=== PATIENT | male | born 1970 | race Caucasian/White ===

== ENCOUNTER 2020-01-27 19:30 | Observation (INO) | payer OTHER, SELFPAY ==
--- NOTE | ~2020-01-27 | MR_ITS ---
EXAMINATION: MR brain/brain stem wo/w con DATE: 01/28/2020 17:07 INDICATION: Headache. Paresthesias. TECHNIQUE: Magnetic resonance imaging (MRI) of the brain and brainstem was performed without and with 15 mL MultiHance intravenous contrast. Sequences included sagittal and axial T1-weighted FSE, axial diffusion-weighted FS EPI, axial T2*-weighted GRE, axial T2-weighted FLAIR Propeller, and axial T2-we ighted Propeller. Postcontrast sequences included axial and coronal T1-weighted FSE. Apparent diffusi on coefficient (ADC) maps were created. COMPARISON: None. FINDINGS: There is no intracranial hemorrhage, acute infarction, or abnormal intracranial mass lesion . There are scattered areas of nonspecific increased T2-weighted signal intensity in the cerebral whi te matter, which is within normal limits for the patient's age. The ventricles are normal in size. Th ere is mucosal thickening in the paranasal sinuses. The orbits are normal. The mastoid air cells are normal. IMPRESSION: 1. Normal brain. Reviewed, dictated and finalized at location A. IMPRESSION: 1. Normal brain.
--- NOTE | ~2020-01-27 | MR_ITS ---
EXAMINATION: MR cervical spine wo/w con DATE: 01/28/2020 17:07 INDICATION: Left arm paresthesias. Headache. TECHNIQUE: Magnetic resonance imaging (MRI) of the cervical spine was performed without and with 15 m L MultiHance intravenous contrast. Sequences included sagittal and axial T2-weighted FSE, sagittal ST IR FSE, and sagittal and axial T1-weighted FSE. Postcontrast sequences included sagittal and axial T1 -weighted FS FSE. COMPARISON: None FINDINGS: There is 4 degrees levocurvature of cervical spine. Vertebral body heights are normal. Ther e is severely decreased disc height from C3-C4 through C6-C7. The spinal cord signal intensity is nor mal. The following disc levels are specifically discussed: C2-C3: There is a central protrusion. There is no uncovertebral joint osteoarthritis. There is modera te bilateral facet joint osteoarthritis. There is no neural foraminal stenosis. There is no central c anal stenosis. C3-C4: The disc is bulging. There is severe bilateral uncovertebral joint osteoarthritis. There is no facet joint osteoarthritis. There is moderate right and mild left neural foraminal stenosis. There i s mild central canal stenosis with ventral indentation of the spinal cord. C4-C5: The disc is bulging. There is severe bilateral uncovertebral joint osteoarthritis. There is no facet joint osteoarthritis. There is moderate right and mild left neural foraminal stenosis. There i s mild central canal stenosis with ventral indentation of the spinal cord. C5-C6: The disc is bulging. There is severe bilateral uncovertebral joint osteoarthritis. There is no facet joint osteoarthritis. There is moderate right and mild left neural foraminal stenosis. There i s mild central canal stenosis. C6-C7: The disc is bulging. There is severe right and moderate left uncovertebral joint osteoarthriti s. There is no facet joint osteoarthritis. There is moderate right and mild left neural foraminal georges nosis. There is mild central canal stenosis. C7-T1: The disc does not extend beyond the endplate margin. There is no uncovertebral joint osteoarth ritis. There is mild bilateral facet joint osteoarthritis. There is mild right neural foraminal steno sis. There is no central canal stenosis. IMPRESSION: 1. Severe cervical spondylosis. Reviewed, dictated and finalized at location A.
--- NOTE | ~2020-01-27 | US_ITS ---
EXAMINATION: US carotid duplex BI DATE: 01/29/2020 16:56 INDICATION: Left hemiparesis. TECHNIQUE: Grayscale, color Doppler, and pulsed Doppler images of the cervical carotid arteries were obtained. The degree of vessel stenosis is placed in one of the following categories: normal, <50%, 5 0-69%, >=70% but less than near-occlusion, near-occlusion, or total occlusion. Note that percent sten osis relative to normal distal artery lumen diameter is indirectly measured from velocity measurement s as described by Pako, et al. Radiology 2003; 229:[id number]. COMPARISON: None. FINDINGS: RIGHT: The right common carotid artery (CCA) peak systolic velocity (PSV) is 107 cm/s. The right internal ca rotid artery (ICA) PSV is 98 cm/s. The right ICA end-diastolic velocity (EDV) is 29 cm/s. The right I CA/CCA PSV ratio is 0.9. Grayscale and color Doppler images yield an estimate of <50% diameter reduct ion from plaque in the ICA. There is antegrade flow in the right vertebral artery. LEFT: The left CCA PSV is 116 cm/s. The left ICA PSV is 100 cm/s. The left ICA EDV is 34 cm/s. The left ICA /CCA PSV ratio is 0.9. Grayscale and color Doppler images yield an estimate of <50% diameter reductio n from plaque in the ICA. There is antegrade flow in the left vertebral artery. IMPRESSION: 1. <50% stenosis in the right internal carotid artery. 2. <50% stenosis in the left internal carotid artery. Reviewed, dictated and finalized at location A.
--- NOTE | 2020-01-27 20:12 | ADMGEN ---
This patient, Karri Orourke, [facility] [place] [facility] Room 251-01. Patient/family oriented to hospital policies and general routines including ID bracelet, bed and alarms, visiting hours, pain management, procedures, bathroom and other care routines, personal items, smoking policy, room service/diet, and visiting hours. Valuables list has been completed. Information on how to activate the Rapid Response Team has been discussed. Patient/Family are encouraged to report perceived risks to care and to ask questions if they do not understand what they are told or what they should do. MD notified of arrival.
--- NOTE | 2020-01-27 21:00 | PM.IMHP ---
H&P: HPI History of Present Illness Chief complaint: Headache, left arm paresthesias. Narrative: Karri Orourke is a 49-year-old male with hypertension hyperlipidemia who presented to the emergency department at [facility] early this morning for evaluation of a headache and left arm paresthesias. He awoke with a headache about his right eye yesterday and it has been constant since that time. He has a difficult time describing the pain and it does not seem to radiate any further than in a box like fashion around his right eye. He endorses photophobia as well. Toradol received at the outside hospital provided no relief. Additionally he reports paresthesias of his left upper extremity, from the left elbow to the left wrist and that has been intermittent for the past couple of days. He denies vertigo, focal weakness, jaw claudication, vision loss, dysarthria, dysphagia, chest pain, palpitations, neck pain, injury, nausea, and vomiting. Review of Systems Review of Systems: Narrative: Twelve systems were reviewed with pertinent positives and negatives as per HPI. No fever, chills, or sweats. He denies sinus congestion, rhinorrhea, otalgia, and odynophagia. With further questioning, he has seasonal sinus issues but has no complaints of such at this time. He reports anterior epistaxis x2 over the past 24 hours. Compliant with his antihypertensives. He does not check his blood pressure at home. He takes gabapentin for low back pain and what sounds like restless legs at night. He has pain in his right shoulder on occasion but has no pain or injury to the left shoulder. He has no history of sleep apnea but states that he snores. He does wake up at nighttime, and on occasion will wake up short of breath. He is not always well rested when he wakes and is frequently tired. has not witnessed any apneic episodes. Except as documented, all other systems were reviewed and are negative. [facility] Past Medical History Medical History (Updated 01/27/20 @ 21:50 by Mary Garcia PA-C) Chronic back pain Essential hypertension GERD (gastroesophageal reflux disease) Hyperlipidemia Psoriasis Surgical History Surgical History (Updated 01/27/20 @ 21:44 by Mary Garcia PA-C) History of bilateral inguinal herniorrhaphies Family History Family History (Updated 01/27/20 @ 21:44 by Mary Garcia PA-C) Mother Diabetes mellitus Hypertension Father Diabetes mellitus Hypertension Social History Social History (Updated 01/27/20 @ 21:45 by Mary Garcia PA-C) Social History: The patient lives in [place], [place] with his . He has no biological children. He works at an [employer] store. He smoked 1 pack of cigarettes per day for 20 years and quit about 4 years ago. He denies alcohol and illicit substance use. He designates his , Bettie, as his surrogate decision maker and he wishes to be a full code. Exam Narrative: Exam Narrative: General: Well-developed male sitting up in bed watching television in no distress. HEENT: Normocephalic, atraumatic. PERRL, EOMI. Sclerae anicteric. Complains of photophobia when I shine a light into his right eye only. Right temporal artery is not painful to palpation. Oral mucosa moist. Some missing teeth. Oropharynx clear. Neck: Supple. No obvious bruits. Respiratory: Lungs are clear to auscultation bilaterally. Cardiovascular: Regular rate and rhythm with S1-S2. No murmur, rub, or gallop. Gastrointestinal: Abdomen is soft, nontender, and nondistended with positive bowel sounds. Skin: Warm and dry. Several tattoos. Plaque psoriasis on elbows, knees, and shins. Extremities: No cyanosis, clubbing, or edema. Radial and pedal pulses intact. Spine: No midline cervical tenderness. Neurological: Alert and oriented. Cranial nerves 2-12 are grossly intact. Speech is clear. No facial asymmetry. Hand vfx artist and foot pushes are equal. No
[2020-01-27 22:00] VITALS: BP 140/75; PULSE 75; RESP 20; TEMP 37.1; O2SAT 97
[2020-01-27 22:10] VITALS: BMI 25.9
[2020-01-28] VITALS (8 sets, daily range): BP systolic 121–132; BP diastolic 71–84; PULSE 69–87; RESP 16–18; TEMP 36.1–36.8; O2SAT 93–96
[2020-01-28 06:04] LABS: CRP < 0.5 mg/dL (<1.0); Cholesterol 210 mg/dL (0-200); HDL Direct 32 mg/dL; Triglycerides 322 mg/dL (<150)
[2020-01-28 06:11] LABS: LDL Cholesterol Direct 115 mg/dL
[2020-01-28 07:07] LABS: Folic Acid 9.4 ng/mL (2.76->20)
[2020-01-28] MEDS: ASPIRIN 81 MG ENTERIC TABLET PO (08:00)
[2020-01-28] MEDS: PANTOPRAZOLE 40 MG TABLET PO (09:50)
--- NOTE | 2020-01-28 11:40 | PM.IMPN ---
Progress Note: A&P Assessment and Plan (1) Headache: Code(s): R51 - Headache Status: Acute Assessment and Plan: Differential diagnosis includes atypical migraine, sinusitis (history of but no current symptoms of such), reversible cerebral basal constriction syndrome, arteritis (no jaw claudication, tenderness, or visual changes), versus other. Continue analgesics as needed. CRP was normal. TSH is pending. Apnea link was ordered given AM headaches and daytime somnolence and is pending. Neurology is on board and further input is appreciated. (2) Paresthesia of left arm: Code(s): R20.2 - Paresthesia of skin Status: Acute Assessment and Plan: Differential diagnosis includes TIA, CVA, MS, peripheral neuropathy, versus other. MRI of the brain/brainstem and cervical spine have been ordered for further evaluation and are currently pending. Neurology is on board. Neurology input is appreciated. (3) Essential hypertension: Code(s): I10 - Essential (primary) hypertension Status: Acute Assessment and Plan: Blood pressure were reviewed and are well-controlled. Plan to continue amlodipine. Continue to monitor. (4) Hyperlipidemia: Code(s): E78.5 - Hyperlipidemia, unspecified Status: Acute Assessment and Plan: Continue pravastatin; LFTs within normal limits. LDL was 115 and HDL 32. He needs to implement low cholesterol diet and exercise. (5) GERD (gastroesophageal reflux disease): Code(s): K21.9 - Gastro-esophageal reflux disease without esophagitis Status: Acute Assessment and Plan: No acute issues. Continue pantoprazole in place of lansoprazole. (6) DVT prophylaxis: Code(s): Z29.9 - Encounter for prophylactic measures, unspecified Status: Acute Assessment and Plan: Continue SCDs. Subjective Date/time seen: 01/28/20 11:40 Interval history: Mr. Orourke is a 49 y.o. male who is seen and examined in follow-up for a headache and left upper extremity numbness. He reports that he is still having 7/10 pain. His pain is present behind the right eye. It is constant in nature since Thursday 01/25. He reports mild LUE numbness but is no longer having weakness. He reports no further nosebleeds. He denies fever and chills. He denies nausea and vomiting. He has a hx of migraines since grade school and notes that he typically has vomiting with his other migraines in the past. He reports associated photophobia. He has no other complaints at this time. He reports intermittent anxiety. Review of Systems Review of Systems: All systems reviewed & are unremarkable except as noted in HPI and below Exam Narrative: Exam Narrative: General: Pleasant, well-developed, and well-nourished 49 y.o. male lying in the semi-flanagan's position in bed in no acute distress. HEENT: Normocephalic and atraumatic. Ice pack present on forehead. Conjunctivae and lids normal without injection. No lacrimation. PERRL. Photophobia present with light shined on right eye. EOMI. Bilateral TMs without injection, bulging, or fluid appreciated. Mucous membranes moist. Posterior pharynx without erythema or exudate. Neck: Supple. No lymphadenopathy or masses. Cardiac: Regular rate and rhythm. S1 and S2 normal. No murmur appreciated. Lungs: Effort normal. Lungs clear to auscultation bilaterally. Abdomen: Normoactive bowel sounds. Abdomen soft, non-tender, and non-distended. Musculoskeletal: No joint erythema, swelling, or tenderness. ROM within normal limits. Extremities: No lower extremity edema. Palpable DP and PT bilaterally. Neurological: Alert and oriented x3. CN II-XII grossly intact. Upper and lower extremity strength intact and symmetric 5/5. No pronator drift. Speech is clear. Skin: Warm and dry. Papular rashes on the knees and elbows bilaterally with silver scales consistent with psoriasis. Psychiatric: Judgment and insight intact. Mood and a
--- NOTE | 2020-01-28 17:12 | CONS_ITS ---
DATE OF CONSULTATION: HISTORY OF PRESENT ILLNESS: This 49 years old has been admitted to [facility] through the emergency room for the complaint of left upper extremity paresthesias. The patient initially presented to the emergency room of hospital for evaluation of headache and left upper extremity paresthesia. Reportedly, he woke up with a headache, constant in nature with no radiation, but with photophobia and also with a history of no relief with the pain medication that is Toradol. Additionally, he complained of left upper extremity paresthesia, which he has been experiencing intermittently over the last couple of days. He gave no history of any other associated symptomatology. PAST MEDICAL HISTORY: He does carry the ongoing diagnoses of: 1. Hypertension. 2. Hyperlipidemia. 3. GERD. 4. Psoriasis. 5. Chronic back pain. PAST SURGICAL HISTORY: In the past, he has undergone bilateral inguinal herniorrhaphies. SOCIAL HISTORY: He works at the [employer], and he smoked 1 pack of cigarettes per day for 20 years, quit about 40 years ago. Does not drink alcohol and does not take any substance. PHYSICAL EXAMINATION: GENERAL: Today, he was awake, alert, cooperative, in no obvious acute distress. HEENT: Head was normocephalic with no cranial bruit. Ears, nose, throat examination was normal. NECK: Supple with no cervical bruit. No thyromegaly. No lymphadenopathy. HEART: Regular with no murmur. LUNGS: Clear to auscultation. ABDOMEN: Soft with no organomegaly. NEUROLOGICAL: He was awake, alert, oriented x3. His speech is not dysphasic, not dysarthric, not dysphonic. Pupils round, regular. Pastor of vision full. Extraocular movements full. Face symmetrical. Tongue midline. Motor examination revealed him to have normal strength and tone with no drift against gravity. Reflexes symmetrical. Plantars downgoing. No evidence of gross sensory or cerebellar deficit. LABORATORY DATA: Investigation up until now included a routine CBC which was normal. Normal BMP, normal hepatic enzymes. IMAGING: Negative CT scan of the head. IMPRESSION AND PLAN: The patient was admitted to the hospital with the possibility of atypical complicated migraine in addition to ongoing history of underlying risk factors of hypertension, hyperlipidemia. He is waiting for the MRI. In the meantime, the treatment will be continued as such. Further recommendations will be made after the MRI report. SAUMYA SAWYER M.D. MUSIC CATALOGUER MUSIC CATALOGUER D I MT: Rufino MARQUEZ
[2020-01-28] MEDS: PRAVASTATIN SODIUM 20 MG TABLET 40 MG PO (21:18)
[2020-01-28] MEDS: amLODIPine BESYLATE 5 MG TABLET PO (21:18)
[2020-01-28] MEDS: GABAPENTIN 300 MG CAPSULE 600 MG PO (21:19)
[2020-01-29] VITALS (8 sets, daily range): BP systolic 118–127; BP diastolic 67–74; PULSE 70–92; RESP 16; TEMP 36–36.1; O2SAT 90–94
[2020-01-29] MEDS: LEVOTHYROXINE SODIUM 50 MCG TABLET PO (06:09)
[2020-01-29] MEDS: IBUPROFEN 600 MG TABLET PO (08:06)
[2020-01-29] MEDS: PANTOPRAZOLE 40 MG TABLET PO (08:06)
[2020-01-29] MEDS: ASPIRIN 81 MG ENTERIC TABLET PO (08:06)
--- NOTE | 2020-01-29 12:07 | WPDNEUROPN ---
Progress Note: A&P Assessment and Plan (1) DVT prophylaxis: Code(s): Z29.9 - Encounter for prophylactic measures, unspecified Status: Acute (2) Paresthesia of left arm: Code(s): R20.2 - Paresthesia of skin Status: Acute (3) Headache: Code(s): R51 - Headache Status: Acute (4) GERD (gastroesophageal reflux disease): Code(s): K21.9 - Gastro-esophageal reflux disease without esophagitis Status: Acute (5) Hyperlipidemia: Code(s): E78.5 - Hyperlipidemia, unspecified Status: Acute (6) Essential hypertension: Code(s): I10 - Essential (primary) hypertension Status: Acute (7) Cervical spondylolysis: Code(s): M43.02 - Spondylolysis, cervical region Status: Acute Additional Plan will need emg as outpatient and follow up for kavon ,continue one aspirin 81 mg daily Review of Systems Review of Systems: All systems reviewed & are unremarkable except as noted in HPI and below Exam Const: General: cooperative, healthy appearing, comfortable, no acute distress, alert and awake Nutritional Appearance: average body habitus Orientation/consciousness: patient oriented x3 Limitations: no limitations HENMT: Head: normal to inspection Ears: hearing grossly normal bilaterally General nose exam: Normal external nose present and No nasal discharge present Eyes: General: appearance normal, both eyes and all related structures Visual Morales: normal visual morales by confrontation Alignment and Position: alignment normal Periorbital: periorbital findings normal Eyelids: eyelids normal Conjunctivae: conjunctivae normal Sclera: sclerae normal Cornea: corneas normal Pupils: Equal, round and reactive pupils present EOM: EOMs intact bilaterally Direct Ophthalmoscopy: normal light reflex Neck: Neck: full ROM and no lymphadenopathy Resp: Effort & Inspection: normal respiratory effort Auscultation: clear to auscultation bilaterally Cardio: Rate: regular rate Rhythm: regular rhythm GI: Auscultation: normal bowel sounds Skin: General skin exam: no rashes or lesions noted Neuro: General: patient oriented x3, moves all extremities and CN's II-XI intact bilaterally Cranial nerves: Yes CN's II-XII intact bilaterally Cognition (Neuro): normal cognition Speech: normal speech Motor exam (neuro): 5/5 motor strength present throughout Sensory Exam: normal sensation Deep tendon reflexes (DTR's): Right triceps reflex intensity grade: 1+, Left triceps reflex intensity grade: 1+, Rt Biceps (C5, C6): 1+, Left biceps reflex intensity grade: 1+, Right brachioradialis reflex intensity grade: 1+, Left brachioradialis reflex intensity grade: 1+, Right patellar reflex intensity grade: 1+, Left patellar reflex intensity grade: 1+, Right ankle reflex intensity grade: 1+ and Left ankle reflex intensity grade: 1+ Plantar Reflex Responses: downgoing: bilateral Extrem: General: normal to inspection Psych: Appearance: grossly normal Objective Data Vital Signs Vital Signs: Vital Signs - 24 hr 01/28/20 14:00 01/28/20 20:00 01/28/20 21:55 Temperature 36.8 C 36.1 C L Pulse Rate 86 83 73 Respiratory Rate 17 16 Blood Pressure 132/84 126/71 Pulse Oximetry 96 96 01/29/20 00:11 01/29/20 04:00 01/29/20 05:23 Temperature 36.0 C L Pulse Rate 88 70 75 Respiratory Rate 16 Blood Pressure 118/67 Pulse Oximetry 90 01/29/20 08:00 Temperature Pulse Rate 75 Respiratory Rate 16 Blood Pressure Pulse Oximetry 90 Intake/Output Intake/Output: Intake & Output 01/26/20 01/27/20 01/28/20 01/29/20 23:59 23:59 23:59 23:59 Intake Total 1810 540 Balance 1810 540 Meds/Results Medications: Active Medications Generic Name Dose Route Start Last Admin Trade Name Freq PRN Reason Stop Dose Admin Acetaminophen 650 mg 01/27/20 21:57 Tylenol Tablet PO Q6H PRN Mild Pain (1-3) or Fever Hydrocodone Bitart/Acetaminophen 1 tab 01/27/20 21
[2020-01-29 12:49] LABS: Free T4 Free Thyroxine Reflex 1.05 ng/dL (0.78-2.19)
[2020-01-29 14:58] LABS: Total Triiodothyronine (T3) 2.33 NG/ML (0.97-1.69)
--- NOTE | 2020-01-29 16:06 | PM.DS ---
DS: Admitting Diagnosis Admitting Diagnosis Admitting Diagnosis: Headache DS: Discharge Diagnosis Discharge Diagnosis (1) Headache: Code(s): R51 - Headache Status: Acute (2) Paresthesia of left arm: Code(s): R20.2 - Paresthesia of skin Status: Acute (3) Essential hypertension: Code(s): I10 - Essential (primary) hypertension Status: Acute (4) Hyperlipidemia: Code(s): E78.5 - Hyperlipidemia, unspecified Status: Acute (5) GERD (gastroesophageal reflux disease): Code(s): K21.9 - Gastro-esophageal reflux disease without esophagitis Status: Acute (6) Subclinical hypothyroidism: Code(s): E03.9 - Hypothyroidism, unspecified Status: Acute Assessment and Plan: TSH was elevated at 17.8, free T4 1.05, and total T3 elevated at 2.33. He will need to follow-up with his PCP for further evaluation/monitoring. (7) Cervical spondylolysis: Code(s): M43.02 - Spondylolysis, cervical region Status: Acute DS: Summary Hospital Course Reason for hospitalization: Headache with left arm paresthesias Hospital Course: Mr. Orourke is a 49 y.o. male with PMH significant for hypertension, hyperlipidemia, and migraines who presented to the emergency department at [facility] 01/27/20 for the evaluation of headache and left arm paresthesias. He reports awakening with a headache behind his right eye Sunday morning. The headache did not radiate. He also noted photophobia. In addition, he reported left arm paresthesias extending from the left elbow to the left wrist which was intermittent since the onset of headache. Initial workup at OSH revealed white blood cells 8.5, hemoglobin 15.7, hematocrit 45.1, platelets 347, sodium 140, potassium 3.8, chloride 110, carbon dioxide 21.2, BUN 19, creatinine 0.96, glucose 118, total bilirubin 0.4, AST 32, ALT 33, alkaline phosphatase 79, total protein 7.7, albumin 3.6. PT 10.7, INR 1.0, PTT 28.5. Troponin < 0.015, CT brain radiologist's impression: No acute findings. Frontal and right anterior ethmoid mucosal sinus disease. He was transferred to our facility for a neurology consult and admitted to the hospitalist service. He was given analgesics as needed. Brain MRI was performed with no acute abnormalities noted. Cervical spine MRI was performed and demonstrated severe cervical spondylosis. Carotid doppler was performed and demonstrated <50% stenosis of the bilateral internal carotid arteries. His symptoms improved significantly. Dr. Whalen with neurology evaluated the patient and recommended he follow-up with neurology outpatient for his migraine management, EMG, and continue ASA EC 81mg daily. His symptoms were felt to be due to a complex migraine. He did have a history of migraines since childhood. He had an apnea link with a score of 2 which fell in the normal range with low suspicion of a pathological breathing disorder.TSH was elevated at 17.8, free T4 1.05, and total T3 elevated at 2.33. He will need to follow-up with his PCP for further evaluation/monitoring. He felt much better and asked to go home. He was discharged in stable condition on the afternoon of 01/29/20. Status at Discharge Functional status at discharge: independent ambulation Overall status at discharge: patient is back to baseline Time Spent with Patient Time attestation: Total time spent providing and/or coordinating discharge services: 35 minutes Exam Narrative: Exam Narrative: Vitals at presentation: Temp Pulse Resp BP Pulse Ox 98.7 F 75 20 140/75 97 01/27/20 22:00 01/27/20 22:00 01/27/20 22:00 01/27/20 22:00 01/27/20 22:00 Vitals at discharge: Temp Pulse Resp BP Pulse Ox 96.9 F L 77 16 127/
== END 2020-01-29 18:04 | disposition home or self-care (01) ==
PROVIDERS: Physician Assistant; Admitting Provider Hospitalist; PCP Family Medicine; Visit Provider Internal Medicine
DX: R51 Headache (principal); R20.2 Paresthesia of skin; M47.812 Spondylosis without myelopathy or radiculopathy, cervical region; I10 Essential (primary) hypertension; E78.5 Hyperlipidemia, unspecified; E03.9 Hypothyroidism, unspecified; K21.9 Gastro-esophageal reflux disease without esophagitis; I65.23 Occlusion and stenosis of bilateral carotid arteries; M54.9 Dorsalgia, unspecified; G89.29 Other chronic pain; L40.9 Psoriasis, unspecified; Z87.891 Personal history of nicotine dependence
CPT/HCPCS: 36415; 70553; 72156; 80061; 82607; 82746; 84439; 84443; 84480; 86140; 93880; 94762; A9270; A9577; G0378

== ENCOUNTER 2020-05-13 12:58 | Outpatient (CLI) | payer OTHER, SELFPAY ==
--- NOTE | 2020-05-13 15:00 | NEURO_ITS ---
Patient Number: [id number] Impression: # Complains of numbness of hand. # Right mild Carpal Tunnel Syndrome. # No ulnar neuropathy. # Normal needle/EMG exam. Nerve Conduction Studies Anti Sensory Summary Table Stim Site NR Peak (ms) P-T Amp (?V) Site1 Site2 Delta-P (ms) Dist (cm) Mono (m/s) Left Median Anti Sensory (2-3nd Digit) Wrist 3.3 37.4 Wrist 2-3nd Digit 3.3 14.0 42 Wrist 3.4 18.3 Wrist 2-3nd Digit 3.3 14.0 42 Right Median Anti Sensory (2-3nd Digit) Wrist 3.7 25.6 Wrist 2-3nd Digit 3.7 14.0 38 Wrist 3.7 11.1 Wrist 2-3nd Digit 3.7 14.0 38 Left Radial Anti Sensory (Base 1st Digit) Wrist 2.1 11.2 Wrist Base 1st Digit 2.1 0.0 Right Radial Anti Sensory (Base 1st Digit) Wrist 2.3 9.7 Wrist Base 1st Digit 2.3 0.0 Left Ulnar Anti Sensory (5th Digit) Wrist 2.7 29.4 Wrist 5th Digit 2.7 14.0 52 Right Ulnar Anti Sensory (5th Digit) Wrist 2.8 28.1 Wrist 5th Digit 2.8 14.0 50 Motor Summary Table Stim Site NR Onset (ms) O-P Amp (mV) Site1 Site2 Delta-0 (ms) Dist (cm) Mono (m/s) Left Median Motor (Abd Poll Brev) Wrist 3.3 5.3 Elbow Wrist 5.1 29.0 57 Elbow 8.4 4.4 Right Median Motor (Abd Poll Brev) Wrist 4.0 5.4 Elbow Wrist 5.0 29.0 58 Elbow 9.0 4.7 Left Ulnar Motor (Abd Dig Minimi) Wrist 2.5 6.1 A Elbow Wrist 5.4 31.0 57 A Elbow 7.9 5.0 Right Ulnar Motor (Abd Dig Minimi) Wrist 2.7 6.5 A Elbow Wrist 5.3 30.0 57 A Elbow 8.0 5.2 F Wave Studies NR F-Lat (ms) L-R F-Lat (ms) Left Median (Mrkrs) (Abd Poll Brev) 30.24 0.99 Right Median (Mrkrs) (Abd Poll Brev) 31.23 0.99 Left Ulnar (Mrkrs) (Abd Dig Min) 30.17 0.81 Right Ulnar (Mrkrs) (Abd Dig Min) 30.98 0.81 EMG Side Muscle Nerve Root Ins Act Fibs Amp Dur Recrt Comment Right 1stDorInt Ulnar C8-T1 Nml Nml Nml Nml Nml Right Ext Indicis Radial (Post Int) C7-8 Nml Nml Nml Nml Nml Right Ext Digitorum Radial (Post Int) C7-8 Nml Nml Nml Nml Nml Right BrachioRad Radial C5-6 Nml Nml Nml Nml Nml Right PronatorTeres Median C6-7 Nml Nml Nml Nml Nml Right Abd Poll Brev Median C8-T1 Nml Nml Nml Nml Nml Left 1stDorInt Ulnar C8-T1 Nml Nml Nml Nml Nml Left Ext Indicis Radial (Post Int) C7-8 Nml Nml Nml Nml Nml Left Ext Digitorum Radial (Post Int) C7-8 Nml Nml Nml Nml Nml Left BrachioRad Radial C5-6 Nml Nml Nml Nml Nml Left PronatorTeres Median C6-7 Nml Nml Nml Nml Nml Left Abd Poll Brev Median C8-T1 Nml Nml Nml Nml Nml Right ABD Dig Min Ulnar C8-T1 Nml Nml Nml Nml Nml Left ABD Dig Min Ulnar C8-T1 Nml Nml Nml Nml Nml Right Anconeus Radial C7-8 Nml Nml Nml Nml Nml Right Brachialis Musculocut C5-6 Nml Nml Nml Nml Nml Left Anconeus Radial C7-8 Nml Nml Nml Nml Nml Left Brachialis Musculocut C5-6 Nml Nml Nml Nml Nml MTDD
== END 2020-05-13 12:59 | disposition home or self-care (01) ==
LOC: ANHNEURO 13:00
PROVIDERS: PCP Family Medicine; Visit Provider Psychiatry & Neurology Neurology
DX: R20.2 Paresthesia of skin (principal); G56.01 Carpal tunnel syndrome, right upper limb
CPT/HCPCS: 95886; 95911